=== PATIENT | male | born 1935 | race Caucasian/White ===

== ENCOUNTER 2017-02-08 21:32 | Emergency (ER) | payer MEDICARE, BC ==
[2017-02-08] MEDS ORDERED: NS 0.9% 1000 ML* 1,000 ML IV ONE (22:07)
[2017-02-08] MEDS ORDERED: Ondansetron INJ* 2 MG/ML VIAL IV ONE (22:07)
[2017-02-08 22:28] LABS: Comments Flag Yes; Hematocrit 40 % (42-52); Hemoglobin 12.6 g/dl (14.0-18.0); Mean Corpuscular HGB Conc 31 g/dl (31-36); Mean Corpuscular Hemoglobin 27 pg (27-31); Mean Corpuscular Volume 85 fL (80-94); Mean Platelet Volume 7 um3 (7.4-10.4); Red Blood Count 4.71 10^6/ul (4.0-5.4); Red Cell Distribution Width 14 % (10.5-15); White Blood Count 13.6 10^3/ul (3.5-10.8)
[2017-02-08 22:29] LABS: Add Diff/Slide Review? Slide Review Added
[2017-02-08 22:42] LABS: Albumin 3.7 g/dL (3.2-5.2); BUN/Creatinine Ratio 19.5 (8-20); C Reactive Protein 35.53 mg/L (< 5.00); Calcium 9.9 mg/dL (8.6-10.3); EGFR African American 39.4 (>60); EGFR Non-African American 30.6 (>60); Globulin 3.3 g/dL (2-4); Potassium 4.2 mmol/L (3.5-5.0); Total Bilirubin 0.5 mg/dL (0.2-1.0)
--- NOTE | 2017-02-08 23:02 | ED ---
I, Ravin,Felix, scribed for José Miguel Low MD on 02/08/17 at 2211 . GI/ HPI - HPI Summary HPI Summary: This 81 y/o male presents to ED for copious n/v after his first BCG treatment earlier today at [facility]. Pt did not receive any prescription for controlling possible adverse reaction. Positive subjective fever. Temperature of 99.8 F is noted at triage. Pt called on-call doctor at [facility], and was directed to ED for hydration and r/o any infection. PMHx is significant for bladder CA, HTN, and GERD. - History of Current Complaint Chief Complaint: EDNauseaVomitDiarrh Time Seen by Provider: 02/08/17 22:03 Stated Complaint: FEVER/VOMITING Hx Obtained From: Patient Onset/Duration: Started Hours Ago, Atraumatic, Still Present Timing: Constant Pain Intensity: 0 Location of Pain: None Associated Signs and Symptoms: Positive: Nausea, Vomiting, Fever - subjective Aggravating Factor(s): Nothing Alleviating Factor(s): Nothing - Allergy/Home Medications Allergies/Adverse Reactions: Allergies Allergy/AdvReac Type Severity Reaction Status Date / Time No Known Allergies Allergy Verified 02/08/17 21:34 PMH/Surg Hx/FS Hx/Imm Hx Cardiovascular History: Reports: Hx Hypertension GI History: Reports: Hx Gastroesophageal Reflux Disease - Cancer History Cancer Type, Location and Year: Bladder CA Infectious Disease History: No Infectious Disease History: Denies: Traveled Outside the [place] in Last 30 Days - Family History Known Family History: Positive: Hypertension - Social History Alcohol Use: None Hx Substance Use: No Substance Use Type: Reports: None Review of Systems Positive: Fever - subjective fever. Positive: Vomiting, Nausea. Negative: Abdominal Pain All Other Systems Reviewed And Are Negative: Yes Physical Exam Triage Information Reviewed: Yes Vital Signs On Initial Exam: Initial Vitals Temp Pulse Resp BP Pulse Ox 99.8 F 113 14 96/57 95 02/08/17 21:36 02/08/17 21:36 02/08/17 21:36 02/08/17 21:36 02/08/17 21:36 Vital Signs Reviewed: Yes Appearance: Positive: Well-Appearing, No Pain Distress Skin: Positive: Warm Head/Face: Positive: Normal Head/Face Inspection Eyes: Positive: PRISCILA ENT: Positive: Hearing grossly normal Neck: Positive: Supple Respiratory/Lung Sounds: Positive: Clear to Auscultation, Breath Sounds Present Cardiovascular: Positive: RRR Abdomen Description: Positive: Nontender, Soft. Negative: CVA Tenderness (R), CVA Tenderness (L) Bowel Sounds: Positive: Present Musculoskeletal: Positive: Strength/ROM Intact Neurological: Positive: Alert, Oriented to Person Place, Time Psychiatric: Positive: Affect/Mood Appropriate Diagnostics - Vital Signs Vital Signs Temp Pulse Resp BP Pulse Ox 02/08/17 21:36 99.8 F 113 14 96/57 95 - Laboratory Lab Results: Lab Results 02/08/17 02/08/17 02/08/17 Range/Units 22:15 22:15 22:15 WBC 13.6 H (3.5-10.8) 10^3/ul RBC 4.71 (4.0-5.4) 10^6/ul Hgb 12.6 L (14.0-18.0) g/dl Hct 40 L (42-52) % MCV 85 (80-94) fL MCH 27 (27-31) pg MCHC 31 (31-36) g/dl RDW 14 (10.5-15) % Plt Count 329 (150-450) 10^3/ul MPV 7 L (7.4-10.4) um3 Neut % (Auto) 94.9 H (38-83) % Lymph % (Auto) 0.9 L (25-47) % [place] % (Auto) 3.1 (1-9) % Eos % (Auto) 0.1 (0-6) % Baso % (Auto) 1.0 (0-2) % Absolute Neuts (auto) 12.9 H (1.5-7.7) 10^3/ul Absolute Lymphs (auto) 0.1 L (1.0-4.8) 10^3/ul Absolute Monos (auto) 0.4 (0-0.8) 10^3/ul Absolute Eos (auto) 0 (0-0.6) 10^3/ul Absolute Basos (auto) 0.1 (0-0.2) 10^3/ul Absolute Nucleated RBC 0.01 10^3/ul Nucleated RBC % 0.1 Sodium 135 (133-145) mmol/L Potassium 4.2 (3.5-5.0) mmol/L Chloride 102 (101-111) mmol/L Carbon Dioxide 22 (22-32) mmol/L Anion Gap 11 (2-11) mmol/L BUN 41 H (6-24) mg/dL Creatinine 2.10 H (0.67-1.17) mg/dL Est GFR ( Amer) 39.4 (>60) Est GFR (Non-Af Amer) 30.6 (>60) BUN/Creatinine Ratio 19.5 (8-20) Glucose 122 H (70-100) mg/dL Lactic Acid 1.3 (0.5-2.0) mmol/L Calcium 9.9 (8.6-10.3) mg/dL Total Bilirubin 0.50 (0.2-1.0) mg/dL AST 100 H (13-39) U/L ALT 33 (7-52) U/L Alkaline Phosphatase 53 (34-104) U/L C-Reactive Protein 35.53 H (< 5.00) mg/L Total Protein 7.0 (6.4-8.9) g/dL Albumin 3.7 (3.2-5.2) g/dL Globulin 3.3 (2-4) g/dL Albumin/Globulin Ratio 1.1 (1-3) Lipase 41 (11.0-82.0) U/L Result Diagrams: 02/08/17 22:15 02/08/17 22:15 Lab Statement: Any lab studies that have been ordered have been reviewed, and results considered in the medical decision making process. Re-Evaluation - Re-Evaluation First Eval Re-Evaluation Time: 00:10 Change: Improved Comment: Pt is PO challenged. GIGU Course/Dx - Diagnoses Provider Diagnoses: Nausea & vomiting Discharge - Discharge Plan Condition: Improved Disposition: HOME Patient Education Materials: Acute Nausea and Vomiting (ED) Referrals: [facility] [facility] [Outside] - 2 Days The documentation as recorded by the Ravin haley Soohyun accurately reflects the service I personally performed and the decisions made by me, José Miguel Low MD.
[2017-02-08 23:14] LABS: Immature Granulocytes 28 % (0-9); Neutrophil % 68 % (38-83); RBC Morphology Normal (Normal)
[2017-02-09 00:46] VITALS: BP 91/51
== END 2017-02-09 00:46 | disposition home or self-care (01) ==
LOC: ED 21:32
DX: R11.2 Nausea with vomiting, unspecified (principal); R50.9 Fever, unspecified
CPT/HCPCS: 36415; 80053; 83605; 83690; 85025; 86140; 96374; 99283; J2405